=== PATIENT | male | born 1995 | race African-American/Black ===

== ENCOUNTER → 2021-06-19 | Outpatient (CLI) | payer OTHER | LOC: MHCPAIN 14:51 | DX: M47.817 Spondylosis without myelopathy or radiculopathy, lumbosacral region (principal); M54.5 Low back pain; M53.3 Sacrococcygeal disorders, not elsewhere classified | CPT/HCPCS: G0463 ==

== ENCOUNTER → 2023-02-12 | Outpatient (CLI) | payer OTHER | LOC: MHCPAIN 08:56 | DX: M47.896 Other spondylosis, lumbar region (principal); M54.16 Radiculopathy, lumbar region | CPT/HCPCS: G0463 ==